=== PATIENT | female | born 1965 | race Caucasian/White ===

== ENCOUNTER 2016-08-26 20:28 | Emergency (ER) | payer OTHER ==
[2016-08-26 20:42] VITALS: BP 151/104; PULSE 84; RESP 18; TEMP 97.9; O2SAT 97
[2016-08-26] MEDS ORDERED: LETS SOLN TOPICAL 1 EA SYR TP ONE (21:36)
[2016-08-26] MEDS ORDERED: AMOXICILLIN/CLAVULANATE POT 875/125 MG TAB PO ONE (22:12)
--- NOTE | 2016-08-26 22:13 | UCPHY ---
H & P Time Seen by Provider: 08/26/16 21:21 Patient Type: New HPI/ROS: 51-year-old female presents complaining splinter in her left foot from sliding on a hardwood floor Review of systems General no fever no chills no weakness HEENT no eye pain no eye discharge. No eye redness, no sore throat Respiratory no cough, no shortness of breath Cardiac no chest pain, no peripheral edema GI no abdominal pain, no diarrhea, no constipation, no nausea, no vomiting no flank pain, no hematuria, no dysuria Musculoskeletal no myalgias, no joint pain Heme no easy bruising, no easy bleeding Endo no polyuria, no polydipsia Skin no rashes, no pruritus Neuro no syncope, no dizziness, no headaches Psych is no suicidal ideation, no homicidal ideation Past Medical/Surgical History: Hypertension Social History: Denies alcohol or drug use Smoking Status: Never smoked Physical Exam: 51-year-old female alert and oriented no acute distress nontoxic appearance Alert and oriented in no acute distress nontoxic appearance, afebrile Atraumatic normocephalic Neck no JVD Lungs clear to auscultation, no respiratory distress Heart regular rate and rhythm Extremities no cyanosis clubbing edema Left foot with a visible splinter on plantar surface under 1st metatarsal Constitutional: Initial Vital Signs Temperature (C) 36.6 C 08/26/16 20:40 Heart Rate 84 08/26/16 20:40 Respiratory Rate 18 08/26/16 20:40 Blood Pressure 151/104 H 08/26/16 20:40 O2 Sat (%) 97 08/26/16 20:40 O2 Delivery Mode Room Air Allergies/Adverse Reactions: No Known Allergies Allergy (Unverified 05/02/10 08:55) Home Medications: Medication Instructions Recorded Amlodipine Besylate 08/26/16 Amoxicillin/Clavulanate Pot 875 mg PO BID #14 tab 08/26/16 [Augmentin 875 MG TAB (*)] Medical Decision Making Procedures: Foreign body removal Let applied 27 gauge needle and splinter tweezers used to remove approximately 1 cm wooden foreign body. Patient tolerated removal well ED Course/Re-evaluation: Patient seen evaluated for 1 splinter to left plantar surface foot Removed Patient home on antibiotics - Data Points Medications Given: Discontinued Medications Amoxicillin/Clavulanate Potassium (Augmentin 875mg) 875 mg PO EDNOW ONE PRN Reason: Protocol Stop: 08/26/16 22:13 Last Admin: 08/26/16 22:25 Dose: 875 mg Departure - Departure Disposition: Home, Routine, Self-Care Clinical Impression: Splinter of left foot without infection Condition: Good Instructions: Amoxicillin/Clavulanate Potassium (By mouth), Soft Tissue Foreign Body (ED) Referrals: Gela Juarez MD [Primary Care Provider] - As per Instructions Prescriptions: Amoxicillin/Clavulanate Pot [Augmentin 875 MG TAB (*)] 875 mg PO BID #14 tab - PQRS PQRS Measurement: na
== END 2016-08-26 22:27 | disposition home or self-care (01) ==
LOC: CED 20:28
PROC: 0JCR3ZZ Extirpation of Matter from Left Foot Subcutaneous Tissue and Fascia, Percutaneous Approach (ICD-10-PCS; principal; 2016-08-26)
DX: S90.852A Superficial foreign body, left foot, initial encounter (principal); I10 Essential (primary) hypertension
CPT/HCPCS: G0463-PO